=== PATIENT | female | born 1970 | race Caucasian/White ===

== ENCOUNTER 2016-10-21 16:48 | Observation (INO) | payer OTHER, MEDICAID ==
[~2016-10-21] VITALS: Ht 167.6 cm; Wt 63.0 kg
[~2016-10-21 16:48] MED LIST: ALPR-475 PO; BUPR100T6 PO; CITA40TA12 PO; KETO10TA PO; LAMO100T PO; VERA40TA PO
[2016-10-21 18:00] LABS: BLOOD UREA NITROGEN 14 mg/dL (7-18)
[2016-10-21 18:00] LABS: DAU SCREEN DISCLAIMER
[2016-10-21 18:09] LABS: ACETAMINOPHEN < 2 mcg/mL (10-30)
[2016-10-21 18:24] LABS: HCG UR OBC PASS
[2016-10-21] MEDS ORDERED: ACETAMINOPHEN 325 MG TABLET PO ONE (20:30)
[2016-10-21] MEDS ORDERED: ACETAMINOPHEN 325 MG TABLET ONE (20:30)
[2016-10-21] MEDS ORDERED: OLANZAPINE 2.5 MG TABLET PO PRN (21:00)
[2016-10-21] MEDS: LACTULOSE 20 GM/30 ML UDC PO SCH (21:00)
[2016-10-21 21:13] LABS: ASPARTATE AMINO TRANSFERASE 17 U/L (15-37)
[2016-10-21 22:05] LABS: HEPATITIS C VIRUS ANTIBODY Nonreactive (Nonreactive)
[2016-10-21 22:10] VITALS: BP 106/74
[2016-10-21] MEDS: LAMOTRIGINE 25 MG TABLET PO SCH (22:33)
[2016-10-21] MEDS: KETOROLAC 10MG TABLET PO PRN (22:33)
[2016-10-22 08:13] VITALS: BP 94/68
[2016-10-22] MEDS ORDERED: CITALOPRAM 20 MG TABLET PO SCH (09:00)
[2016-10-22] MEDS: LACTULOSE 20 GM/30 ML UDC PO SCH ×2 (09:00→20:08)
[2016-10-22] MEDS ORDERED: FLUOXETINE 10 MG CAP PO SCH (09:00)
[2016-10-22] MEDS ORDERED: VERAPAMIL 40MG TABLET PO SCH (09:00)
[2016-10-22] MEDS: LAMOTRIGINE 25 MG TABLET PO SCH ×2 (09:57→20:09)
[2016-10-22] MEDS: KETOROLAC 10MG TABLET PO PRN ×2 (11:23→15:54)
[2016-10-22 19:34] VITALS: BP 106/73
[2016-10-22 20:34] VITALS: BP 157/92
[2016-10-22] MEDS ORDERED: FAMOTIDINE 20 MG TABLET PO SCH (21:00)
== END 2016-10-23 00:49 ==
LOC: ED 20:44 → EDIP 20:50 → 3E 21:29
PROVIDERS: ADMIT Family Medicine; ATTEND Family Medicine
DX: R45.851 Suicidal ideations (principal); D72.829 Elevated white blood cell count, unspecified; E72.20 Disorder of urea cycle metabolism, unspecified; G43.909 Migraine, unspecified, not intractable, without status migrainosus; K21.9 Gastro-esophageal reflux disease without esophagitis; F32.9 Major depressive disorder, single episode, unspecified; F12.10 Cannabis abuse, uncomplicated; Z87.891 Personal history of nicotine dependence; Z79.899 Other long term (current) drug therapy; Z83.3 Family history of diabetes mellitus
CPT/HCPCS: 36415; 80048; 80074; 80076; 80307; 80329; 81025; 82040; 82140; 85025; 99285; G0378; G0480

== ENCOUNTER 2016-11-12 19:30 | Observation (INO) | payer OTHER, MEDICAID ==
[~2016-11-12] VITALS: Ht 167.6 cm; Wt 60.0 kg
[2016-11-12] MEDS ORDERED: KETOROLAC 30 MG/1 ML IM ONE (20:00)
[2016-11-12] MEDS ORDERED: LORazepam 1MG TABLET PO ONE (20:00)
[2016-11-12] MEDS ORDERED: LORazepam 1MG TABLET ONE (20:12)
[2016-11-12] MEDS ORDERED: KETOROLAC 30 MG/1 ML ONE (20:12)
[2016-11-12] MEDS ORDERED: LAMO25TA5 PO (20:28)
[2016-11-12] MEDS ORDERED: TOPI50TA35 PO (20:28)
[2016-11-12] MEDS ORDERED: FLUO40CA9 PO (20:28)
[2016-11-12] MEDS ORDERED: FAMO-79 PO (20:28)
[2016-11-12 20:42] LABS: DAU SCREEN DISCLAIMER
[2016-11-12 20:50] LABS: BLOOD UREA NITROGEN 17 mg/dL (7-18)
[2016-11-12 20:51] LABS: ACETAMINOPHEN < 2 mcg/mL (10-30)
[2016-11-13 02:30] VITALS: BP 107/77
[2016-11-13] MEDS ORDERED: POLYETHYLENE GLYCOL 17 GM PACKET PO PRN (02:30)
[2016-11-13] MEDS ORDERED: DOCUSATE 100 MG CAPSULE PO PRN (02:30)
[2016-11-13] MEDS ORDERED: BISACODYL 10 MG SUPP PR PRN (02:30)
[2016-11-13] MEDS ORDERED: ACETAMINOPHEN 325 MG TABLET PO PRN (02:30)
[2016-11-13 07:36] VITALS: BP 109/77
[2016-11-13] MEDS: KETOROLAC 10MG TABLET PO SCH ×2 (08:18→15:50)
[2016-11-13] MEDS: LORazepam 1MG TABLET PO PRN ×2 (08:48→16:51)
[2016-11-13] MEDS ORDERED: FAMOTIDINE 20 MG TABLET PO SCH (09:00)
[2016-11-13 09:12] LABS: HCG UR OBC PASS
== END 2016-11-13 17:12 ==
LOC: ED 20:37 → EDIP 11-13 00:55 → 3E 11-13 02:18
PROVIDERS: ADMIT Internal Medicine; ATTEND Internal Medicine
DX: R45.851 Suicidal ideations (principal); I10 Essential (primary) hypertension; K21.9 Gastro-esophageal reflux disease without esophagitis; G43.909 Migraine, unspecified, not intractable, without status migrainosus; F32.9 Major depressive disorder, single episode, unspecified; F12.10 Cannabis abuse, uncomplicated; Z90.710 Acquired absence of both cervix and uterus; Z90.49 Acquired absence of other specified parts of digestive tract; Z72.0 Tobacco use
CPT/HCPCS: 36415; 80048; 80307; 80329; 81025; 82040; 84703; 85025; 96372; 99285; G0378; J1885; G0480

== ENCOUNTER 2017-07-31 12:15 | Emergency (ER) | payer MEDICAID, OTHER ==
[~2017-07-31] VITALS: Ht 167.6 cm; Wt 74.8 kg
[~2017-07-31 12:15] MED LIST changes: +FAMO-79 PO; +FLUO40CA9 PO; +LAMO25TA5 PO; +TOPI50TA35 PO
[2017-07-31 12:29] VITALS: BP 131/84
[2017-07-31] MEDS ORDERED: SERT25TA PO (13:18)
[2017-07-31] MEDS ORDERED: BUSP5TAB2 PO (13:18)
[2017-07-31] MEDS ORDERED: HYDROcodone/APAP 5/325 TABLET PO ONE (13:30)
[2017-07-31] MEDS ORDERED: HYDROcodone/APAP 5/325 TABLET ONE (13:37)
== END 2017-07-31 14:02 | disposition home or self-care (01) ==
LOC: ED 13:00
DX: S43.421A Sprain of right rotator cuff capsule, initial encounter (principal); K21.9 Gastro-esophageal reflux disease without esophagitis; X58.XXXA Exposure to other specified factors, initial encounter; Y93.89 Activity, other specified; Y92.009 Unspecified place in unspecified non-institutional (private) residence as the place of occurrence of the external cause; Y99.8 Other external cause status
CPT/HCPCS: 99284